=== PATIENT | female | born 1995 | race Caucasian/White ===

== ENCOUNTER 2021-07-05 01:36 | Emergency (ER) | payer SELFPAY ==
[~2021-07-05] VITALS: Ht 160 cm; Wt 55.4 kg
[2021-07-05 02:59] LABS: BASO # 0.01 K/mm3 (0.02-0.10); HEMATOCRIT 41.1 % (37.0-47.0); HEMOGLOBIN 13.9 g/dL (12.5-16.0); LYMPH# 1.19 K/mm3 (1.50-4.00); MEAN CELL VOLUME 89 fl (78-100); MEAN CORPUSCULAR HEMOGLOBIN 30 pg (27-31); MEAN CORPUSCULAR HGB CONC 34 g/dL (33-37); MEAN PLATELET VOLUME 9.7 fl (7.4-10.4); NEU # 13.53 K/mm3 (1.40-6.50); PLATELET COUNT 221 K/mm3 (130-400); RED CELL DISTRIBUTION WIDTH 11.9 % (11.5-14.5); WHITE BLOOD COUNT 15.4 K/mm3 (4.8-10.8)
[2021-07-05 03:09] LABS: ALBUMIN 4.4 g/dL (3.5-5.0); POTASSIUM 3.6 mmol/L (3.5-5.1)
[2021-07-05 03:10] LABS: CALCIUM 9.9 mg/dL (8.3-10.5)
[2021-07-05 03:12] LABS: TOTAL PROTEIN 8.1 g/dL (6.4-8.3)
[2021-07-05 03:13] LABS: TOTAL BILIRUBIN 0.5 mg/dL (0.2-1.2)
[2021-07-05 03:22] LABS: URINE APPEARANCE CLOUDY; URINE COLOR YELLOW
[2021-07-05 03:23] LABS: PH-URINE 7.5 (5.0 - 8.0); URINE BILIRUBIN NEGATIVE (NEGATIVE); URINE BLOOD 250 ery/uL (NEGATIVE); URINE GLUCOSE NEGATIVE (NEGATIVE); URINE KETONE 2+ (NEGATIVE); URINE LEUKOCYTE ESTERASE 2+ (NEGATIVE); URINE NITRATE POSITIVE (NEGATIVE); URINE PROTEIN(semi-quant) 1+ (NEGATIVE); URINE UROBILINOGEN NORMAL (NORMAL); URINE WBC >50 /hpf (0-3)
[2021-07-05] MEDS ORDERED: SEPTRA DS 8001 TAB PO (05:54)
[2021-07-05] MEDS ORDERED: NORCO 325 MG-51 TA1 PO (06:02)
[2021-07-05 06:10] VITALS: BP 99/55
== END 2021-07-05 06:10 | disposition home or self-care (01) ==
LOC: ED 01:36
PROVIDERS: Family Medicine
DX: N12 Tubulo-interstitial nephritis, not specified as acute or chronic (principal); F17.210 Nicotine dependence, cigarettes, uncomplicated; Z20.822 Contact with and (suspected) exposure to COVID-19; Z91.040 Latex allergy status
CPT/HCPCS: J0696; J1885; J7030